=== PATIENT | male | born 1945 | race Caucasian/White ===

== ENCOUNTER 2017-12-29 21:47 | Emergency (ER) | payer OTHER ==
[2017-12-29] MEDS ORDERED: ASPIRIN 81 MG CHEWABLE CTB ONE (21:58)
[2017-12-29] MEDS ORDERED: SODIUM CHLORIDE 0.9% FLUSH 10 ML SOL IV PRN ×2 (22:01→22:08)
[2017-12-29] MEDS ORDERED: SOLUMEDROL 125 MG/2 ML 125 MG/2 ML PDS IV ONE (22:05)
[2017-12-29 22:06] VITALS: TEMP 98.8
[2017-12-29] MEDS ORDERED: NITROGLYCERIN 0.4 MG TAB SL PRN (22:06)
[2017-12-29] MEDS ORDERED: ALBUTEROL/IPRATROPIUM 1 VIAL SOL INH ONE ×2 (22:07→23:00)
[2017-12-29] MEDS ORDERED: ALBUTEROL/IPRATROPIUM 1 VIAL SOL ONE ×2 (22:10→22:58)
[2017-12-29] MEDS ORDERED: SOLUMEDROL 125 MG/2 ML 125 MG/2 ML PDS ONE (22:10)
[2017-12-29] MEDS ORDERED: NITROGLYCERIN 0.4 MG TAB SL ONE (22:10)
[2017-12-29 22:11] LABS: BASOPHILS % (AUTO) 1 % (0-3); EOSINOPHILS % (AUTO) 5 % (0-9); HEMATOCRIT 41 % (39-53); HEMOGLOBIN 13.3 gm/dl (13.5-17.7); LYMPHOCYTES % (AUTO) 28.6 % (10-50); MEAN CORPUSCULAR HEMOGLOBIN 30.1 pg (27.0-32.0); MEAN CORPUSCULAR HGB CONC 32.4 gm/dl (32.0-36.0); MEAN CORPUSCULAR VOLUME 93 fL (80-100); MONOCYTES % (AUTO) 8.6 % (0-12); NEUTROPHILS % (AUTO) 56.9 % (37-80)
[2017-12-29 22:25] LABS: ALBUMIN 3.5 gm/dl (3.4-5.0); BILIRUBIN,TOTAL 0.5 mg/dl (0.2-1.0); CALCIUM 8.5 mg/dl (8.5-10.1); CARBON DIOXIDE 29.1 mEq/L (21-32); CREATININE 1.12 mg/dl (0.80-1.30); CRP INFLAMMATORY 0.18 mg/dl (0.00-0.33); POTASSIUM 3.8 mMol/L (3.5-5.1); TOTAL PROTEIN 6.8 gm/dl (6.4-8.2)
[2017-12-29 23:35] VITALS: BP 118/73; PULSE 79; RESP 15; O2SAT 100
[2017-12-30] MEDS ORDERED: ASPIRIN EC 81 MG PO SCH (09:00)
== END 2017-12-29 23:18 | disposition home or self-care (01) | DRG 192 ==
LOC: ED 21:47
DX: J44.1 Chronic obstructive pulmonary disease with (acute) exacerbation (principal); Z87.891 Personal history of nicotine dependence; R07.89 Other chest pain
CPT/HCPCS: 71045; 80053; 85025; 93005; 96374; 99284; 99285; J2930; A9270-GY